=== PATIENT | female | born 1945 | race Caucasian/White ===

== ENCOUNTER → 2023-04-25 | Emergency (ER) | payer OTHER ==
[~2023-04-25] MED LIST: FENTANYL CITR 100 MCG/2 ML ONE; NA CHLORIDE 0.9% 1,000 ML ONE
[2023-04-25 19:13] LABS: Absolute Lymphocytes (CBC) 1.2 K/uL (0.7-4.9); Hematocrit 36.6 % (36.0-45.0); Lymphocytes % 9.7 % (15.3-44.8); MCV 92.4 fL (80-100); MPV 8.9 fL (7.6-11.3); Platelets 280 thou/uL (152-406); RBC Red Blood Cell Count 3.96 M/uL (3.86-4.86)
[2023-04-25 19:31] LABS: Bilirubin Direct 0.2 mg/dL (0-0.2); Bilirubin Indirect, Calculated 0.6 mg/dL (0.2-0.8); Bilirubin Total 0.8 mg/dL (0.2-1.0); Magnesium 2.4 mg/dL (1.6-2.4); Potassium 3.9 mEq/L (3.5-5.1); Protein, Total 7.3 g/dL (6.4-8.2); Troponin High Sensitivity 7.1 pg/mL (<58.9)
--- NOTE | 2023-04-25 19:55 | RAD REPORT ---
EXAM DESCRIPTION: RAD - Chest Single View - 04/25/2023 7:05 pm CLINICAL HISTORY: CHEST PAIN Chest pain. COMPARISON: <Comparisons> FINDINGS: Portable technique limits examination quality. The lungs are grossly clear. The heart is upper limit of normal in size. No displaced fractures.Dual lead pacer device present. Cervical hardware plate. IMPRESSION: No acute intrathoracic process suspected.
--- NOTE | 2023-04-25 21:34 | RAD REPORT ---
EXAM DESCRIPTION: CT - Chest Abd Pelvis Wo Con - 04/25/2023 9:24 pm CLINICAL HISTORY: Chest and abdomen pain. ruq abdomen pain COMPARISON: Chest Single View dated 04/25/2023; Chest Pa And Lat (2 Views) dated 04/16/2023 TECHNIQUE: A limited noncontrast study was performed. All CT scans are performed using dose optimization technique as appropriate and may include automated exposure control or mA/KV adjustment according to patient size. FINDINGS: The lungs are clear.Pacer device present.No pleural or pericardial effusion.No intrathorac ic adenopathy.Small hiatal hernia. Cholecystectomy clips. The liver, spleen, pancreas, adrenal glands and kidneys are within normal limits. Right renal stone w ithout hydronephrosis. No bowel obstruction, free air, free fluid or abscess. Normal appendix. Moderate stool is present thr oughout the colon. Prominent diverticulosis affects the sigmoid colon without diverticulitis. No path ologic lymphadenopathy in the abdomen or pelvis. No worrisome osseous finding. IMPRESSION: Prominent sigmoid diverticulosis coli without diverticulitis.Moderate stool is present t hroughout the colon. Right renal calculi without hydronephrosis.
[2023-04-25 22:55] LABS: Specific Gravity 1.013 (1.005-1.030); Urine Bilirubin NEGATIVE (Negative); Urine Blood Negative (Negative); Urine Clarity Clear (Clear); Urine Color Light-Yellow (Yellow); Urine Glucose NEGATIVE (Negative); Urine Protein NEGATIVE (Negative); Urine Urobilinogen Normal (Normal); Urine pH 6.5 (5.0-7.0)
--- NOTE | 2023-04-25 23:44 | ER ---
Nurse's Notes [facility] Name: Rekha Boyer Age: 77 yrs Sex: Female : 1945 Arrival Date: 04/25/2023 Time: 18:23 Bed 19 Private MD: Diagnosis: Chest pain, unspecified;Upper abdominal pain, unspecified Presentation: 04/25 18:35 Chief complaint: Patient states: Chest pain across chest that she describes as pressure cm10 onset 2 hours ago. Pt also reports shortness of breath onset 8 hours ago. Pt currently on home O2. Coronavirus screen: Vaccine status: Patient reports receiving the 2nd dose of the covid vaccine. Client denies travel out of the [place] in the last 14 days. Ebola Screen: Patient denies travel to an Ebola-affected area in the 21 days before illness onset. No symptoms or risks identified at this time. Initial Sepsis Screen: Does the patient meet any 2 criteria? No. Patient's initial sepsis screen is negative. Does the patient have a suspected source of infection? No. Patient's initial sepsis screen is negative. Risk Assessment: Do you want to hurt yourself or someone else? Patient reports no desire to harm self or others. Onset of symptoms was April 25, 2023. 18:35 Method Of Arrival: Ambulatory cm10 18:35 Acuity: STEFANO 2 cm10 Historical: - Allergies: 18:34 PENICILLINS; cm10 18:34 Sulfa (Sulfonamide Antibiotics); cm10 18:34 Lisinopril; cm10 18:34 Clindamycin; cm10 18:34 tramadol; cm10 18:34 montelukast; cm10 18:34 shellfish derived; cm10 18:34 Iodinated Contrast Media - IV Dye; cm10 - PMHx: 18:34 Congestive heart failure; COPD; cm10 - Immunization history:: Adult Immunizations up to date. - Social history:: Smoking status: Patient denies any tobacco usage or history of. Screenin:00 [facility] ED Fall Risk Assessment (Adult) History of falling in the last 3 months, kc6 including since admission No falls in past 3 months (0 pts) Confusion or Disorientation No (0 pts) Intoxicated or Sedated No (0 pts) Impaired Gait Yes (1 pt) Mobility Assist Device Used Yes (1 pt) Altered Elimination No (0 pt) Score/Fall Risk Level 0 - 2 = Low Risk. Abuse screen: Denies threats or abuse. Denies injuries from another. Nutritional screening: No deficits noted. Tuberculosis screening: No symptoms or risk factors identified. Assessment: 18:45 General: Appears in no apparent distress. comfortable, obese, well groomed, well kc6 developed, Behavior is calm, cooperative, appropriate for age. Pain: Complains of pain in back, chest and abdomen Pain radiates to back and abdomen Pain began 4 hours ago. Neuro: Level of Consciousness is awake, alert, obeys commands, Oriented to person, place, time, situation, Appropriate for age. Cardiovascular: Reports chest pain, Heart tones S1 S2 present Capillary refill < 3 seconds Rhythm is sinus rhythm. Respiratory: Reports shortness of breath at rest on exertion Airway is patent Trachea midline Respiratory effort is even, labored, Respiratory pattern is symmetrical, tachypnea. GI: No signs and/or symptoms were reported involving the gastrointestinal system. : No signs and/or symptoms were reported regarding the genitourinary system. EENT: No signs and/or symptoms were reported regarding the EENT system. Derm: No signs and/or symptoms reported regarding the dermatologic system. Skin is intact, is healthy with good turgor, Skin is dry, Skin is yellow, Skin temperature is warm. Musculoskeletal: No signs and/or symptoms reported regarding the musculoskeletal system. Circulation, motion, and sensation intact. Capillary refill < 3 seconds, Range of motion: intact in all extremities. 20:05 Reassessment: Patient appears in no apparent distress at this time. No changes from jw7 previously documented assessment. Patient and/or family updated on plan of care and expected duration. Pain level reassessed. Patient is alert, oriented x 3, equal unlabored respirations, skin warm/dry/pink. 21:31 Reassessment: Patient appears in no apparent distress at this time. Patient and/or jw7 family updated on plan of care and expected duration. Pain level reassessed. Patient is alert, oriented x 3, equal unlabored respirations, skin warm/dry/pink. Patient states symptoms have improved. 22:25 Reassessment: Patient appears in no apparent distress at this time. No changes from jw7 previously documented assessment. Patient and/or family updated on plan of care and expected duration. Pain level reassessed. Patient is alert, oriented x 3, equal unlabored respirations, skin warm/dry/pink. 23:30 Reassessment: Patient appears in no apparent distress at this time. No changes from jw previously documented assessment. Patient and/or family updated on plan of care and expected duration. Pain level reassessed. Patient is alert, oriented x 3, equal unlabored respirations, skin warm/dry/pink. Vital Signs: 18:35 BP 145 / 78; Pulse 78; Resp 18; Temp 97.7(IR); Pulse Ox 97% on 2 lpm NC; Weight 125.65 cm10 kg; Height 5 ft. 8 in. ; Pain 6/10; 19:45 BP 113 / 54; Pulse 60; Resp 18 S; Pulse Ox 98% on 2 lpm NC; jw7 21:00 BP 116 / 53; Pulse 60; Resp 17 S; Pulse Ox 100% on 2 lpm NC; jw7 22:00 BP 114 / 56; Pulse 60; Resp 16 S; Pulse Ox 100% on 2 lpm NC; jw7 23:08 BP 118 / 59; Pulse 60; Resp 12 S; Pulse Ox 100% on 2 lpm NC; jw7 23:58 BP 122 / 58; Pulse 60; Resp 13 S; Pulse Ox 100% on 2 lpm NC; jw7 18:35 Body Mass Index 42.12 (125.65 kg, 172.72 cm) cm10 18:35 Pain Scale: Adult cm10 ED Course: 18:27 Patient arrived in ED. ts1 18:37 Triage completed. cm10 18:37 Arm band placed on Patient placed in an exam room, on a stretcher, on oxygen. cm10 18:47 Emiliano Saldana MD is Attending Physician. franci 19:00 Patient has correct armband on for positive identification. Placed in gown. Bed in low kc6 position. Call light in reach. Side rails up X2. Adult w/ patient. Client placed on continuous cardiac and pulse oximetry monitoring. NIBP monitoring applied. monitor car operator on. 19:00 Report given to Estela Sapp RN. kc6 19:02 Emiliano Celestin PA is PHCP. cp 19:05 Inserted saline lock: 20 gauge in right antecubital area, using aseptic technique. kc6 Blood collected. Oxygen administration via nasal cannula \T\ 2L/min. 19:07 XRAY Chest (1 view) In Process Unspecified. EDMS 19:23 Estela Portillo, RN is Primary Nurse. jw7 19:43 Influenza Screen (a \T\ B) Sent. jw7 19:43 COVID-19 SARS RT PCR Sent. jw7 21:26 Chest Abd Pelvis Wo Con In Process Unspecified. EDMS 23:59 Provided Education on: discharge instructions. jw7 23:59 No provider procedures requiring assistance completed. IV discontinued, intact, jw7 bleeding controlled, No redness/swelling at site. Pressure dressing applied. Administered Medications: 21:52 Discontinued: ns 0.9% 1000 ml IV at 125 ml/hr continuous cp 19:23 Drug: NS 0.9% IV 1000 ml IV at 125 ml/hr continuous Route: IV; Rate: 125 ml/hr; Site: [facility] right antecubital; 04/26 00:00 Follow up: Response: No adverse reaction; IV Status: Order to discontinue infusion; IV jw7 Intake: 250ml 04/25 19:47 Drug: fentaNYL (PF) IVP 25 mcg IVP once Route: IVP; Site: right antecubital; jw7 23:59 Follow up: Response: No adverse reaction; Marked relief of symptoms jw7 Medication: 23:59 VIS not applicable for this client. jw7 Intake: 04/26 00:00 IV: 250ml; Total: 250ml. jw7 Outcome: 04/25 23:43 Discharge ordered by . cp 23:59 Discharged to home ambulatory, jw7 23:59 Condition: stable 23:59 Discharge instructions given to patient, Instructed on discharge instructions, follow up and referral plans. Demonstrated understanding of instructions, follow-up care, 04/26 00:00 Patient left the ED. jw7 Signatures: Dispatcher [employer] EDKS Emiliano Saldana MD MD cha Page, Corey, PA PA cp Waits, Jodi, RN RN jw7 Yasmin Sumner RN RN [id number] Dana Zaidi PAS PAS ts1 Opal Moore, ELIZABETH RN cm10 Corrections: (The following items were deleted from the chart) 04/25 20:06 19:45 BP 113 / 54; Pulse 60bpm; Resp 18bpm; Spontaneous; Pulse Ox 98% RA; jw7 jw7
--- NOTE | 2023-04-25 23:44 | EDPHYS ---
Physician Documentation [facility] Name: Rekha Boyer Age: 77 yrs Sex: Female : 1945 Arrival Date: 04/25/2023 Time: 18:23 Bed 19 Private MD: ED Physician Emiliano Saldana HPI: 04/25 18:55 This 77 yrs old Female presents to ER via Ambulatory with complaints of Chest Pain, cp Blood Pressure Problem, Abdominal Pain. 18:55 The patient or guardian reports chest pain that is located primarily in the anterior cp chest wall, bilaterally. 18:55 Onset: 2 hour(s) ago. The patient presents with abdominal pain in the upper abdomen. cp Onset: The symptoms/episode began/occurred today. Associated signs and symptoms: Pertinent positives: shortness of breath for 8 hours, Pertinent negatives: constipation, diarrhea, fever. The chest pain is described as a heaviness. Patient reports recent discharge from this hospital last Wednesday after being admitted for pneumonia. Historical: - Allergies: 18:34 PENICILLINS; cm10 18:34 Sulfa (Sulfonamide Antibiotics); cm10 18:34 Lisinopril; cm10 18:34 Clindamycin; cm10 18:34 tramadol; cm10 18:34 montelukast; cm10 18:34 shellfish derived; cm10 18:34 Iodinated Contrast Media - IV Dye; cm10 - PMHx: 18:34 Congestive heart failure; COPD; cm10 - Immunization history:: Adult Immunizations up to date. - Social history:: Smoking status: Patient denies any tobacco usage or history of. ROS: 19:00 Constitutional: Negative for body aches, chills, fever, poor PO intake, cp 19:00 Eyes: Negative for injury, pain, redness, and discharge, cp 19:00 ENT: Negative for drainage from ear(s), ear pain, sore throat, difficulty swallowing, difficulty handling secretions, 19:00 Cardiovascular: Positive for chest pain, Negative for palpitations, 19:00 Respiratory: Positive for shortness of breath, Negative for cough, wheezing, 19:00 Abdomen/GI: Positive for abdominal pain, Negative for vomiting, diarrhea, constipation, 19:00 Back: Negative for pain at rest, pain with movement, 19:00 Neuro: Negative for altered mental status, headache, syncope, weakness, Exam: 18:55 ECG was reviewed by the Attending Physician. cp 19:05 Constitutional: The patient appears in no acute distress, alert, awake, cp non-diaphoretic, non-toxic, well developed, well nourished, obese, 19:05 Head/Face: Normocephalic, atraumatic. cp 19:05 Eyes: Periorbital structures: appear normal, Conjunctiva: normal, no exudate, no injection, Sclera: no appreciated abnormality, Lids and lashes: appear normal, bilaterally, 19:05 ENT: External ear(s): are unremarkable, Nose: is normal, Mouth: Lips: moist, Oral mucosa: pink and intact, moist, Posterior pharynx: is normal, airway is patent, no erythema, no exudate, 19:05 Neck: ROM/movement: is normal, is supple, without pain, no range of motions limitations, 19:05 Chest/axilla: Inspection: normal, 19:05 Cardiovascular: Rate: normal, Rhythm: regular, Edema: ankle edema, that is very mild, JVD: is not appreciated, 19:05 Respiratory: the patient does not display signs of respiratory distress, Respirations: labored breathing, is not present, intercostal retractions, are absent, Breath sounds: are clear throughout, rhonchi, no stridor, no wheezing, 19:05 Abdomen/GI: Inspection: obese Bowel sounds: active, all quadrants, Palpation: soft, in all quadrants, mild abdominal tenderness, in the right upper quadrant, rebound tenderness, is not appreciated, involuntary guarding, is not appreciated, 19:05 Back: CVA tenderness, is absent, 19:05 Neuro: Orientation: to person, place \T\ time. Mentation: is normal, Motor: moves all fours, strength is normal, Sensation: is normal, Vital Signs: 18:35 BP 145 / 78; Pulse 78; Resp 18; Temp 97.7(IR); Pulse Ox 97% on 2 lpm NC; Weight 125.65 cm10 kg; Height 5 ft. 8 in. ; Pain 6/10; 19:45 BP 113 / 54; Pulse 60; Resp 18 S; Pulse Ox 98% on 2 lpm NC; jw7 21:00 BP 116 / 53; Pulse 60; Resp 17 S; Pulse Ox 100% on 2 lpm NC; jw7 22:00 BP 114 / 56; Pulse 60; Resp 16 S; Pulse Ox 100% on 2 lpm NC; jw7 23:08 BP 118 / 59; Pulse 60; Resp 12 S; Pulse Ox 100% on 2 lpm NC; jw7 23:58 BP 122 / 58; Pulse 60; Resp 13 S; Pulse Ox 100% on 2 lpm NC; jw7 18:35 Body Mass Index 42.12 (125.65 kg, 172.72 cm) cm10 18:35 Pain Scale: Adult cm10 MDM: 18:45 Patient medically screened. franci 19:01 Patient medically screened. franci 23:42 Data reviewed: vital signs, nurses notes, lab test result(s), EKG, radiologic studies, cp CT scan, plain films. 23:42 Differential diagnosis: abnormal EKG, acute myocardial infarction, pancreatitis, cp pneumonia, pneumothorax. Consideration of Admission/Observation Escalation of care including admission/observation considered. I considered the following discharge prescriptions or medication management in the emergency department Medications were administered in the Emergency Department. See MAR. Independent interpretation of the following test(s) in the Emergency Department EKG: See my EKG interpretation above. Care significantly affected by the following chronic conditions: Congestive Heart Failure, Chronic Obstructive Pulmonary Disease, Obesity. Counseling: I had a detailed discussion with the patient and/or guardian regarding the historical points, exam findings, and any diagnostic results supporting the discharge/admit diagnosis, lab results, radiology results, the need for outpatient follow up, a family practitioner, to return to the emergency department if symptoms worsen or persist or if there are any questions or concerns that arise at home. Response to treatment: the patient's symptoms have markedly improved after treatment, and as a result, I will discharge patient. Special discussion: Based on the patient's history, exam, and Dx evaluation, there is no indication for emergent intervention or inpatient Tx. It is understood by the patient/guardian that if the Sx's persist or worsen they need to return immediately for re-evaluation. Based on the patient's Hx, exam, and Dx evaluation, there is no indication for emergent surgery or inpatient Tx. It is understood by the patient/guardian that if the Sx's persist or worsen they need to return immediately for re-evaluation. 04/25 18:47 Order name: Basic Metabolic Panel; Complete Time: 20:00 [facility] 04/25 21:51 Interpretation: Normal except: CL 95; CO2 35; BUN 40; CRE 2.12; GFR 24; CA 8.4. 04/25 18:47 Order name: CBC with Diff; Complete Time: 19:29 [facility] 04/25 23:44 Interpretation: Normal except: WBC 12.10; HGB 11.8; RDW 16.5; SHERYL% 83.9; LYM% 9.7; NEUT cp A 10.1. 04/25 18:47 Order name: LFT's; Complete Time: 20:00 [facility] 04/25 23:45 Interpretation: Normal except: AST 12; ALK 118; ALB 3.0; GLOB 4.3; A/G 0.7. 04/25 18:47 Order name: Magnesium; Complete Time: 20:00 [facility] 04/25 18:47 Order name: NT PRO-BNP; Complete Time: 20:00 [facility] 04/25 18:47 Order name: Troponin HS; Complete Time: 20:00 [facility] 04/25 18:47 Order name: Lipase; Complete Time: 20:00 [facility] 04/25 18:47 Order name: Urinalysis w/ reflexes; Complete Time: 23:02 [facility] 04/25 19:30 Order name: COVID-19 SARS RT PCR; Complete Time: 21:50 04/25 19:30 Order name: Influenza Screen (a \T\ B); Complete Time: 21:50 04/25 21:53 Order name: Troponin High Sensitivity; Complete Time: 23:38 04/25 23:45 Interpretation: Reviewed. 04/25 18:47 Order name: XRAY Chest (1 view); Complete Time: 20:00 [facility] 04/25 20:41 Order name: Chest Abd Pelvis Wo Con; Complete Time: 21:50 EDMS 04/25 18:47 Order name: EKG; Complete Time: 18:48 [facility] 04/25 18:47 Order name: Cardiac monitoring; Complete Time: 19:04 [facility] 04/25 18:47 Order name: EKG - Nurse/Tech; Complete Time: 19:04 [facility] 04/25 18:47 Order name: IV Saline Lock; Complete Time: 19:04 [facility] 04/25 18:47 Order name: Labs collected and sent; Complete Time: 19:04 [facility] 04/25 18:47 Order name: O2 Per Protocol; Complete Time: 19:04 [facility] 04/25 18:47 Order name: O2 Sat Monitoring; Complete Time: : [facility] EC:55 Rate is 77 beats/min. Rhythm is regular, Paced. QRS interval is prolonged at 154 msec. cp QT interval is prolonged. Interpreted by me. Reviewed by me. Administered Medications: 21:52 Discontinued: ns 0.9% 1000 ml IV at 125 ml/hr continuous cp 19:23 Drug: NS 0.9% IV 1000 ml IV at 125 ml/hr continuous Route: IV; Rate: 125 ml/hr; Site: [facility] right antecubital; 04/26 00:00 Follow up: Response: No adverse reaction; IV Status: Order to discontinue infusion; IV jw7 Intake: 250ml 04/25 19:47 Drug: fentaNYL (PF) IVP 25 mcg IVP once Route: IVP; Site: right antecubital; jw7 23:59 Follow up: Response: No adverse reaction; Marked relief of symptoms jw7 Disposition Summary: 04/25/23 23:43 Discharge Ordered Notes: Location: Home cp Problem: new cp Symptoms: have improved cp Condition: Stable cp Diagnosis - Chest pain, unspecified cp - Upper abdominal pain, unspecified cp Followup: cp - With: Private Physician - When: 2 - 3 days - Reason: Recheck today's complaints Discharge Instructions: - Discharge Summary Sheet cp - Abdominal Pain, Adult cp - Nonspecific Chest Pain, Adult cp - Aspirin and Your Heart cp Forms: - Medication Reconciliation Form cp - Thank You Letter cp - Antibiotic Education cp - Prescription Opioid Use cp - Patient Portal Instructions cp - Leadership Thank You Letter cp Signatures: Dispatcher [employer] EDMS Emiliano Saldana MD MD cha Page, Corey, PA PA cp Estela Portillo RN RN jw7 Opal Moore RN RN cm10 Corrections: (The following items were deleted from the chart) 20:41 20:32 Abdomen Pelvis Wo Con+CT.RAD.BRZ ordered. EDMS EDMS 20:45 20:33 Thorax Wo Con+CT.RAD.BRZ ordered. EDMS EDMS
[2023-04-26 02:22] VITALS: TEMP 97.7
[2023-04-26 02:39] VITALS: BP 122/58; O2SAT 100
--- NOTE | 2023-04-26 16:57 | EKG ---
Test Date: 2023-04-25 Test Time: 18:47:50 Wilton Weaver: CRISTIAN MEASUREMENT RESULTS: Intervals: Rate: 77 DE: 220 QRSD: 154 QT: 446 QTc: 504 [place]: P: 98 DE: 220 QRS: 220 T: 52 INTERPRETIVE STATEMENTS: Suspect arm lead reversal, interpretation assumes no reversal Atrial-paced rhythm with prolonged AV conduction Right bundle branch block Abnormal ECG Compared to ECG 04/16/2023 18:10:00 T-wave abnormality no longer present Possible ischemia no longer present Electronically Signed On 04-26-23 16:55:27 [employer] MECHANIC by Armando Holt
== END ==
LOC: ER 18:23
DX: R07.89 Other chest pain (principal); R10.10 Upper abdominal pain, unspecified; Z11.52 Encounter for screening for COVID-19; J44.9 Chronic obstructive pulmonary disease, unspecified; I50.9 Heart failure, unspecified; Z88.0 Allergy status to penicillin; Z88.2 Allergy status to sulfonamides; Z88.3 Allergy status to other anti-infective agents; Z88.5 Allergy status to narcotic agent; Z88.8 Allergy status to other drugs, medicaments and biological substances; Z91.013 Allergy to seafood; Z91.041 Radiographic dye allergy status
CPT/HCPCS: 96361; 93005; 85025; 80048; 36415; 83735; 80076; 81003; 84484 ×2; 83690; 83880; 87635; 87804 ×2; 71250; 74176; 71045; 96374; 99285; J3010; J7030

== ENCOUNTER 2023-09-28 18:35 | Inpatient (IN) | payer OTHER ==
--- NOTE | 2023-09-28 20:31 | ER ---
Nurse's Notes [facility] Name: Rekha Boyer Age: 77 yrs Sex: Female : 1945 Arrival Date: 09/28/2023 Time: 18:35 Bed 15 Private MD: Diagnosis: UTI/ Urinary tract infection, site not specified-ESBL Presentation: 09/27 18:56 Chief complaint: Patient states: ESBL urine, sent in by Dr. Wilson. Coronavirus screen: ll1 Client denies travel out of the [place] in the last 14 days. At this time, the client does not indicate any symptoms associated with coronavirus-19. Ebola Screen: Patient denies travel to an Ebola-affected area in the 21 days before illness onset. Initial Sepsis Screen: Does the patient meet any 2 criteria? No. Patient's initial sepsis screen is negative. Does the patient have a suspected source of infection? No. Patient's initial sepsis screen is negative. Risk Assessment: Do you want to hurt yourself or someone else? Patient reports no desire to harm self or others. Onset of symptoms was September 28, 2023. 18:56 Method Of Arrival: Wheelchair ll1 18:56 Acuity: STEFANO 3 ll1 Triage Assessment: 18:56 General: Appears uncomfortable, Behavior is calm, cooperative, appropriate for age. iw Pain: Denies pain. : Reports ESBL urine. Historical: - Allergies: 18:59 Clindamycin; ll1 18:59 Iodinated Contrast Media - IV Dye; ll1 18:59 Lisinopril; ll1 18:59 montelukast; ll1 18:59 PENICILLINS; ll1 18:59 shellfish derived; ll1 18:59 Sulfa (Sulfonamide Antibiotics); ll1 18:59 tramadol; ll1 18:59 Tape; ll1 - PMHx: 18:59 Congestive heart failure; COPD; Asthma; ll1 - Immunization history:: Adult Immunizations up to date. - Infectious Disease History:: Denies. - Social history:: Smoking status: Patient/guardian denies using tobacco. Screenin:19 [facility] ED Fall Risk Assessment (Adult) History of falling in the last 3 months, pc2 including since admission No falls in past 3 months (0 pts) Confusion or Disorientation No (0 pts) Intoxicated or Sedated No (0 pts) Impaired Gait Yes (1 pt) Mobility Assist Device Used Yes (1 pt) Altered Elimination No (0 pt) Score/Fall Risk Level 0 - 2 = Low Risk Oriented to surroundings, Maintained a safe environment, Hourly rounding (assess needs \\T\\ fall precautionary measures) done. Abuse screen: Denies threats or abuse. Denies injuries from another. Nutritional screening: No deficits noted. Tuberculosis screening: No symptoms or risk factors identified. Assessment: 19:49 General: Appears in no apparent distress. comfortable, obese, well groomed, Behavior is pc2 calm, cooperative, appropriate for age. Neuro: Level of Consciousness is awake, alert, obeys commands, Oriented to person, place, time, situation, Appropriate for age. Cardiovascular: Capillary refill < 3 seconds Patient's skin is warm and dry. Pulses are all present. Respiratory: Airway is patent Respiratory effort is even, unlabored, Respiratory pattern is regular, symmetrical. GI: Abdomen is obese. : Reports burning with urination, since few days "discomfort, feels like pins sticking me after I finishing urinating.". EENT: No signs and/or symptoms were reported regarding the EENT system. Musculoskeletal: No signs and/or symptoms reported regarding the musculoskeletal system. Reports Healing wound on right ankle from surgery in April. Unable to walk far distance without walker or wheelchair. Vital Signs: 18:56 Pulse 72; Resp 18; Temp 98; Pulse Ox 100% on 2 lpm NC; Weight 119.75 kg; Height 5 ft. 8 ll1 in. ; Pain 0/10; 19:39 BP 151 / 60; Pulse 72; Resp 18; Pulse Ox 100% on R/A; pc2 22:00 BP 145 / 65; Pulse 65; Resp 18; Pulse Ox 100% on R/A; pc2 18:56 Body Mass Index 40.14 (119.75 kg, 172.72 cm) ll1 18:56 Pain Scale: Adult ll1 ED Course: 18:36 Patient arrived in ED. rg4 18:[address] MD is Attending Physician. ec2 18:59 Triage completed. ll1 18:59 [facility] Math[facility]C [facility] kb 19:00 Arm band placed on. ll1 19:38 Anika cooper, RN is Primary Nurse. pc2 19:40 Client placed on continuous cardiac and pulse oximetry monitoring. NIBP monitoring pc2 applied. Pulse ox on. NIBP on. 20:21 Provided Education on: POC and timeframe, reason for admission. pc2 20:22 Patient has correct armband on for positive identification. Placed in gown. Bed in low pc2 position. Call light in reach. Side rails up X2. 20:29 Junito Almanza is Hospitalizing Provider. kb 20:30 Initial lab(s) drawn, by me, sent to lab. First set of blood cultures drawn by me. vk 20:33 Blood Culture Adult (2) Sent. vk 20:33 CBC with Diff Sent. vk 20:33 CMP Sent. vk 20:33 Lactate w/ 2H reflex if indic. Sent. vk 20:33 Protime (+inr) Sent. vk 20:33 Ptt, Activated Sent. vk 20:33 Inserted saline lock: 20 gauge in right forearm, using aseptic technique. vk 20:40 No provider procedures requiring assistance completed. pc2 Administered Medications: 21:55 Drug: Meropenem IV 1 grams IV at calculated rate once; (mix in NS 100 mL) Route: IV; pc2 Rate: calculated rate; Site: right forearm; 22:52 Follow up: Response: No adverse reaction; IV Status: Completed infusion; IV Intake: pc2 100ml Medication: 20:22 VIS not applicable for this client. pc2 Intake: 22:52 IV: 100ml; Total: 100ml. pc2 Outcome: 20:30 Decision to Hospitalize by Provider. kb 20:35 Admitted to ER Hold. Please see [facility] for further documentation. pc2 20:35 Condition: stable pc2 20:35 Instructed on the need for admit, Demonstrated understanding of instructions, 09/28 11:00 Patient left the ED. bp Signatures: Candice Mathias, OPAL MINER-C OPAL MINER-CkNaila Sequeira, RN Katharine Medeiros rg4 Jorge Sabillon RN RN Sophie Alegre RN RN ll1 Mason Lane MD MD ec2 Yoli King vk Anika cooper, RN RN pc2
--- NOTE | 2023-09-28 20:31 | EDPHYS ---
Physician Documentation [facility] Name: Rekha Boyer Age: 77 yrs Sex: Female : 1945 Arrival Date: 09/28/2023 Time: 18:35 Bed 15 Private MD: ED Physician Mason Lane HPI: 09/27 21:28 This 77 yrs old Female presents to ER via Wheelchair with complaints of Abnormal Lab kb Results. 21:28 Pt is a 77 year old female who presents for admission for IV antibiotics. States she kb was seen by Dr Wilson on Wednesday for dysuria, had labs and urinalysis done. Was called today and told she needed IV antibiotics and admission. Historical: - Allergies: 18:59 Clindamycin; ll1 18:59 Iodinated Contrast Media - IV Dye; ll1 18:59 Lisinopril; ll1 18:59 montelukast; ll1 18:59 PENICILLINS; ll1 18:59 shellfish derived; ll1 18:59 Sulfa (Sulfonamide Antibiotics); ll1 18:59 tramadol; ll1 18:59 Tape; ll1 - PMHx: 18:59 Congestive heart failure; COPD; Asthma; ll1 - Immunization history:: Adult Immunizations up to date. - Infectious Disease History:: Denies. - Social history:: Smoking status: Patient/guardian denies using tobacco. ROS: 21:27 Constitutional: As per HPI kb Exam: 20:32 Constitutional: This is a well developed, well nourished patient who is awake, alert, kb and in no acute distress. Head/Face: Normocephalic, atraumatic. ENT: Moist Mucous membranes Cardiovascular: Regular rate Respiratory: Respirations even and unlabored. No increased work of breathing. Talking in full sentences Skin: Warm, dry with normal turgor. Normal color. MS/ Extremity: Pulses equal, no cyanosis. Neurovascular intact. Full, normal range of motion. Neuro: Awake and alert, GCS 15, oriented to person, place, time, and situation. Moves all extremities 20:32 ECG was reviewed by the Attending Physician. Vital Signs: 18:56 Pulse 72; Resp 18; Temp 98; Pulse Ox 100% on 2 lpm NC; Weight 119.75 kg; Height 5 ft. 8 ll1 in. ; Pain 0/10; 19:39 BP 151 / 60; Pulse 72; Resp 18; Pulse Ox 100% on R/A; pc2 22:00 BP 145 / 65; Pulse 65; Resp 18; Pulse Ox 100% on R/A; pc2 18:56 Body Mass Index 40.14 (119.75 kg, 172.72 cm) ll1 18:56 Pain Scale: Adult ll1 MDM: 19:00 Patient medically screened. kb 21:27 Differential diagnosis: UTI, ESBL. Data reviewed: vital signs, nurses notes. kb Consideration of Admission/Observation Patient was admitted/placed on observation. Escalation of care including admission/observation considered. Management of patient was discussed with the following: Hospitalist: Dr Almanza accepts pt for admission. External Records Reviewed: Outpatient labs: labs from PCP reviewed. urine positive for ESBL. Counseling: I had a detailed discussion with the patient and/or guardian regarding the historical points, exam findings, and any diagnostic results supporting the discharge/admit diagnosis, lab results, the need for further work-up and treatment in the hospital. 09/27 19:02 Order name: Blood Culture Adult (2) kb 09/27 19:02 Order name: CBC with Diff; Complete Time: 21:04 kb 09/27 19:02 Order name: CMP; Complete Time: 21:21 kb 09/27 19:02 Order name: Lactate w/ 2H reflex if indic.; Complete Time: 21:21 kb 09/27 19:02 Order name: Protime (+inr); Complete Time: 21:04 kb 09/27 19:02 Order name: Ptt, Activated; Complete Time: 21:04 kb 09/27 19:02 Order name: Urinalysis w/ reflexes kb 09/28 02:55 Order name: CBC with Automated Diff EDMS 09/28 03:02 Order name: Basic Metabolic Panel EDMS 09/28 03:02 Order name: Phosphorus EDMS 09/28 03:02 Order name: Magnesium EDMS 09/27 19:02 Order name: Cardiac monitoring; Complete Time: 20:17 kb 09/27 19:02 Order name: EKG - Nurse/Tech; Complete Time: 20:17 kb 09/27 19:02 Order name: IV Saline Lock - Large Bore; Complete Time: 20:17 kb 09/27 19:02 Order name: Labs collected and sent; Complete Time: 20:33 kb 09/27 19:02 Order name: O2 Per Protocol; Complete Time: 19:52 kb 09/27 19:02 Order name: O2 Sat Monitoring; Complete Time: 19:52 kb 09/27 19: Order name: Vital Signs; Complete Time: 19:52 kb EC:32 Rate is 64 beats/min. Rhythm is regular. QRS [place] is Normal. DE interval is normal at kb 146 msec. QRS interval is normal at 150 msec. QT interval is prolonged at 526 msec. Administered Medications: 21:55 Drug: Meropenem IV 1 grams IV at calculated rate once; (mix in NS 100 mL) Route: IV; pc2 Rate: calculated rate; Site: right forearm; 22:52 Follow up: Response: No adverse reaction; IV Status: Completed infusion; IV Intake: pc2 100ml Disposition Summary: 09/28/23 20:30 Hospitalization Ordered Notes: Hospitalization Status: Inpatient Admission kb Provider: Junito Almanza Condition: Stable kb Problem: new kb Symptoms: are unchanged kb Bed/Room Type: Standard Location: Telemetry/MedSurg (Inpatient)(09/29/23 10:14) Room Assignment: 404(09/29/23 10:14) bd Diagnosis - UTI/ Urinary tract infection, site not specified - ESBL kb Forms: - Medication Reconciliation Form kb - SBAR form kb - Leadership Thank You Letter kb Addendum: 10/01/2023 14:38 I was immediately available for consultation during this patient's visit. I did not e c2 personally see the patient or discuss the patient with the TAM. . Signatures: Dispatcher [employer] EDCandice Castillo FNP-C PHYSICAL THERAPY ASSISTANT-Corinna Guardado Lynsay RN RN ll1 Cydney Menjivar RN RN vc1 Mason Lane MD MD ec2 Anika cooper, RN RN pc2 Corrections: (The following items were deleted from the chart) 09/27 19:02 19:02 BLOOD CULTURE*+BA.LAB.BRZ ordered. EDVT EDMS 19:02 19:02 CBC+H.LAB.BRZ ordered. EDVT EDMS 19:02 19:02 COMPREHENSIVE METABOLIC PANEL+C.LAB.BRZ ordered. EDVT EDMS 19:02 19:02 LACTATE+C.LAB.BRZ ordered. EDMS EDMS 19: 19:02 PROTIME (+INR)+COAG.LAB.BRZ ordered. EDMS EDMS 19:02 19:02 PTT, ACTIVATED+COAG.LAB.BRZ ordered. EDMS EDMS 19:02 19:02 Urinalysis+U.LAB.BRZ ordered. EDMS EDMS 22:43 20:30 Telemetry/MedSurg (Inpatient) kb 1 22:43 20:30 kb 1 09/28 10:14 09/27 22:43 [facility] ER HOLD vc1 09/28 10:09/27 22:43 ERHOLD- vc1 bd
[2023-09-28 20:59] LABS: Absolute Basophils 0.1 K/uL (0-0.5); Absolute Eosinophils 0.2 K/uL (0-0.5); Absolute Lymphocytes (CBC) 1.3 K/uL (0.7-4.9); Absolute Monocytes 0.7 K/uL (0.1-1.3); Absolute Neutrophil 4.8 K/uL (1.8-8.0); Basophils % 0.9 % (0-1.3); Eosinophils % 2.4 % (0-4.4); Hematocrit 27.4 % (36.0-45.0); Hemoglobin 8.7 g/dL (12.0-15.0); Lymphocytes % 18.2 % (15.3-44.8); MCH 25.3 pg (27.0-35.0); MCHC 31.8 g/dL (32.0-36.0); MCV 79.8 fL (80-100); MPV 8.5 fL (7.6-11.3); Monocytes % 9.8 % (3.3-12.3); Neutrophils % 68.7 % (41.7-73.7); Nucleated Red Blood Cells % 0.3 % (0-0); Platelets 306 thou/uL (152-406); RBC Red Blood Cell Count 3.43 M/uL (3.86-4.86); Red Cell Distribution Width 17.3 % (12.1-15.2)
[2023-09-28 21:04] LABS: PT Prothrombin Time 15.7 SECONDS (9.5-12.5); Protime INR 1.44
[2023-09-28 21:15] LABS: Albumin/Globulin Ratio 0.6 (1.1-1.8); Anion Gap 7.7 mEq/L (5.0-15.0); Bilirubin Total 0.6 mg/dL (0.2-1.0); Globulin 4.9 g/dL (2.3-3.5); Potassium 3.7 mEq/L (3.5-5.1); Protein, Total 7.9 g/dL (6.4-8.2)
[2023-09-28] MEDS ORDERED: ONDANSETRON 4 MG/2 ML VIAL IV PRN (21:47)
[2023-09-28] MEDS ORDERED: Meropenem 1000 MG/VIAL IV ONE (21:55)
[2023-09-28] MEDS ORDERED: NA CHLORIDE 0.9% 100 ML ONE (21:55)
--- NOTE | 2023-09-28 22:01 | P.HP ---
Certification for Inpatient Patient admitted to: Inpatient With expected LOS: >2 Midnights Practitioner: I am a practitioner with admitting privileges, knowledge of patient current condition, hospital course, and medical plan of care. Services: Services provided to patient in accordance with Admission requirements found in Title 42 Section 412.3 of the Code of Federal Regulations Patient History Date of Service: 09/28/23 Reason for admission: Urinary tract infection History of Present Illness: 77-year-old male with a history of gout, COPD and hypertension was referred to the emergency department to be admitted for presence of ESBL E. coli in her urine. Patient reports urinary symptoms with suprapubic pain, dysuria and increased urinary frequency of about 3 days duration. She went to see her PCP Dr. Wilson, urine culture was done which grew ESBL E. coli. Patient denies any fever or nausea or inflammation or loss of appetite. She was assessed in the emergency department and patient noted to have anemia, UA is pending. Patient is hospitalized for further management. Allergies clindamycin Allergy (Verified 04/16/23 23:57) Nausea/Vomiting Iodinated Contrast Media Allergy (Verified 04/16/23 23:57) Hives lisinopril Allergy (Verified 04/16/23 23:59) muscle aches montelukast [From Singulair] Allergy (Verified 04/16/23 23:57) Hives Penicillins Allergy (Verified 04/16/23 23:57) Hives shellfish derived Allergy (Verified 04/16/23 23:57) Hives Sulfa (Sulfonamide Antibiotics) Allergy (Verified 04/16/23 23:57) Nausea/Vomiting tramadol Allergy (Verified 04/16/23 23:59) dizziness,GI upset Home Medications: Allopurinol 1 tab PO DAILY 04/17/23 Amiodarone HCl [Cordarone*] 1 tab PO DAILY 04/17/23 Apixaban [Eliquis] 5 mg PO BID 04/17/23 Benzonatate [Tessalon Perle*] 100 mg PO TID 04/17/23 Bupropion *Xl* [Wellbutrin XL*] 150 mg PO DAILY 04/17/23 Citalopram Hydrobromide [Citalopram HBr] 40 mg PO DAILY 04/17/23 Famotidine 20 mg PO SEECOM 04/17/23 Fluticasone/Umeclidin/Vilanter [Trelegy Ellipta 100-62.5-25] 1 puff IH DAILY 04/17/23 Iron 27 Or 1 tab PO DAILY 04/17/23 Levothyroxine Sodium 75 mcg PO DAILY 04/17/23 Metoprolol Succinate 100 mg PO DAILY 04/17/23 Pregabalin 100 mg PO BID 04/17/23 Torsemide [Demadex*] 60 mg PO BID 04/17/23 Citalopram [Celexa*] 40 mg PO DAILY 04/18/23 Levofloxacin [Levaquin] 500 mg PO DAILY #7 tab 04/18/23 Methylprednisolone [Medrol dosepack] 4 mg PO DIRECTED #1 patience 04/18/23 Pharmacy Consult 1 ea XX DAILYPRN PRN ea 04/18/23 - Past Medical/Surgical History Diabetic: No -: Chronic atrial fibrillation -: Congestive heart failure -: COPD -: Chronic respiratory failure -: GERD -: Gallbladder surgery - Family History Father -: Cancer - Social History Alcohol use: No CD- Drugs: No Caffeine use: Yes Review of Systems Other: Except as documented, all other systems reviewed and negative. Physical Examination - Physical Exam General: Alert, In no apparent distress, Oriented x3 HEENT: Mucous membr. moist/pink Neck: Supple, JVD not distended Respiratory: Clear to auscultation bilaterally, Normal air movement Cardiovascular: No edema, Normal S1 S2, Irregular heart rate/rhythm Capillary refill: <2 Seconds Gastrointestinal: Normal bowel sounds, Soft and benign, Non-distended, No tenderness Musculoskeletal: No swelling, No tenderness Integumentary: No cyanosis, Other (Healed surgical scar-medial aspect of right ankle) Neurological: Normal speech, Normal strength at 5/5 x4 extr, Cranial nerves 3-12 intact Lymphatics: No axilla or inguinal lymphadenopathy - Studies Laboratory Data (last 24 hrs) 09/28/23 09/28/23 09/28/23 20:26 20:26 20:26 WBC 7.10 Hgb 8.7 L Hct 27.4 L Plt Count 306 PT 15.7 H INR 1.44 APTT 38.0 H Sodium 138 Potassium 3.7 BUN 25 H Creatinine 1.83 H Glucose 133 H Total Bilirubin 0.6 AST 15 ALT 18 Alkaline Phosphatase 152 H Assessment and Plan - Problems (Diagnosis) (1) Urinary tract infection due to extended-spectrum beta lactamase (ESBL) producing Escherichia coli Current Visit: Yes Status: Acute (2) COPD (chronic obstructive pulmonary disease) Current Visit: Yes Status: Acute (3) Chronic gout Current Visit: Yes Status: Acute (4) Chronic anticoagulation Current Visit: No Status: Acute (5) Chronic atrial fibrillation Current Visit: No Status: Acute - Plan ESBL E. coli UTI Admit to the medical floor Patient reports remote allergy to penicillin with hives. Trial of IV meropenem, Anticipating 5 to 7 days of IV meropenem Consider midline for outpatient IV antibiotics. Chronic atrial fibrillation Chronic anticoagulation Continue home dose amiodarone Continue Eliquis Chronic Gout Continue home dose allopurinol. COPD Chronic respiratory failure with hypoxia Not in exacerbation Bronchodilators, nebs as needed Patient uses 2 L of oxygen by nasal cannula at baseline. DVT prophylaxis: Eliquis. CODE STATUS: Full code. - Advance Directives Does patient have a Living Will: No Does patient have a Durable POA for Healthcare: No
[2023-09-28 23:20] VITALS: BMI 40.1
[2023-09-29 01:59] LABS: Specific Gravity 1.015 (1.005-1.030); Sqamous Epithelial <5 /HPF (None Seen); Urine Bacteria <20 /HPF (<20); Urine Bilirubin NEGATIVE (Negative); Urine Blood Negative (Negative); Urine Clarity Turbid (Clear); Urine Color Light-Yellow (Yellow); Urine Culture Reflex Order REFLEXED; Urine Glucose NEGATIVE (Negative); Urine Ketones NEGATIVE (Negative); Urine Microscopic Reflex YN ORDER UMIC; Urine Mucus Slight /HPF (None Seen); Urine Nitrite 1+ (Negative); Urine Protein NEGATIVE (Negative); Urine RBC None Seen /HPF (None Seen); Urine Urobilinogen Normal (Normal); Urine pH 6.5 (5.0-7.0)
[2023-09-29 02:48] LABS: Absolute Basophils 0.1 K/uL (0-0.5); Absolute Eosinophils 0.2 K/uL (0-0.5); Absolute Lymphocytes (CBC) 1.7 K/uL (0.7-4.9); Absolute Monocytes 0.8 K/uL (0.1-1.3); Absolute Neutrophil 3.9 K/uL (1.8-8.0); Eosinophils % 3.2 % (0-4.4); Hematocrit 26.5 % (36.0-45.0); Hemoglobin 8.3 g/dL (12.0-15.0); Lymphocytes % 25.9 % (15.3-44.8); MCH 24.9 pg (27.0-35.0); MCHC 31.4 g/dL (32.0-36.0); MCV 79.4 fL (80-100); MPV 9.5 fL (7.6-11.3); Monocytes % 11.9 % (3.3-12.3); Nucleated Red Blood Cells % 0.2 % (0-0); Platelets 223 thou/uL (152-406); RBC Red Blood Cell Count 3.34 M/uL (3.86-4.86); Red Cell Distribution Width 17.3 % (12.1-15.2)
[2023-09-29 03:02] LABS: Anion Gap 8.1 mEq/L (5.0-15.0); Magnesium 2.1 mg/dL (1.6-2.4); Phosphorus 4.1 mg/dL (2.5-4.9); Potassium 4.1 mEq/L (3.5-5.1)
[2023-09-29] MEDS: ENOXAPARIN 30 MG/0.3 ML SQ SCH (09:00)
[2023-09-29] MEDS: Meropenem 1,000 MG in NA CHLORIDE 0.9% 100 ML IV SCH (09:00)
[2023-09-29] MEDS ORDERED: Meropenem 1000 MG/VIAL IV ONE (09:10)
[2023-09-29] MEDS ORDERED: ENOXAPARIN 30 MG/0.3 ML SQ ONE (09:11)
[2023-09-29] MEDS ORDERED: NA CHLORIDE 0.9% 100 ML ONE (09:11)
--- NOTE | 2023-09-29 12:50 | P.PN ---
Subjective Date of Service: 09/29/23 Chief Complaint: Urinary tract infection Pt is resting comfortably in bed. He denies any chest pain, fever or SOB. She is getting iv merrem for ESBL Ecoli. No other complaints. Review of Systems General: Unremarkable Eyes: Unremarkable ENT: Unremarkable Respiratory: Unremarkable Cardiovascular: Unremarkable Gastrointestinal: Unremarkable Genitourinary: Unremarkable Musculoskeletal: Unremarkable Integumentary: Unremarkable Neurological: Unremarkable Lymphatics: Unremarkable Physical Examination - Vital Signs Temperature: 97.5 F Blood Pressure: 127/59 Pulse: 67 Respirations: 17 Pulse Ox (%): 95 - Physical Exam General: Alert, In no apparent distress, Oriented x3 HEENT: Atraumatic, Normocephalic, PERRLA Neck: Supple, 2+ carotid pulse no bruit, JVD not distended Respiratory: Clear to auscultation bilaterally, Normal air movement Cardiovascular: No edema, Normal pulses, Regular rate/rhythm, Normal S1 S2 Capillary refill: <2 Seconds Gastrointestinal: Normal bowel sounds, Soft and benign, Non-distended Musculoskeletal: No clubbing, No swelling Integumentary: No rashes, No breakdown, No significant lesion Neurological: Normal gait, Normal speech, Normal strength at 5/5 x4 extr Lymphatics: No axilla or inguinal lymphadenopathy - Studies Laboratory Data (last 24 hrs) 09/28/23 09/28/23 09/28/23 20:26 20:26 20:26 WBC 7.10 Hgb 8.7 L Hct 27.4 L Plt Count 306 PT 15.7 H INR 1.44 APTT 38.0 H Sodium 138 Potassium 3.7 BUN 25 H Creatinine 1.83 H Glucose 133 H Total Bilirubin 0.6 AST 15 ALT 18 Alkaline Phosphatase 152 H Assessment And Plan - Plan ESBL E. coli UTI: Will continue merrem for 7 days. F/u urine cx. Chronic atrial fibrillation: will continue telemetry, amiodarone and Eliquis. Chronic Gout: continue home dose allopurinol. COPD / Chronic respiratory failure with hypoxia: Stable. Not in exacerbation. Will continue prn duoneb and 2L oxygen. DVT ppx: Eliquis. Code: Full code Dispo: Pending hospital course.
[2023-09-30 07:06] LABS: Absolute Eosinophils 0.2 K/uL (0-0.5); Absolute Lymphocytes (CBC) 1.6 K/uL (0.7-4.9); Absolute Monocytes 0.8 K/uL (0.1-1.3); Absolute Neutrophil 3.2 K/uL (1.8-8.0); Basophils % 0.3 % (0-1.3); Eosinophils % 3.3 % (0-4.4); Hematocrit 24.7 % (36.0-45.0); Hemoglobin 7.7 g/dL (12.0-15.0); Lymphocytes % 27.7 % (15.3-44.8); MCH 24.9 pg (27.0-35.0); MCHC 31.3 g/dL (32.0-36.0); MCV 79.5 fL (80-100); MPV 8.2 fL (7.6-11.3); Monocytes % 13.8 % (3.3-12.3); Neutrophils % 54.9 % (41.7-73.7); Nucleated Red Blood Cells % 0.3 % (0-0); Platelets 265 thou/uL (152-406); RBC Red Blood Cell Count 3.11 M/uL (3.86-4.86); Red Cell Distribution Width 17.1 % (12.1-15.2)
[2023-09-30 07:24] LABS: AST/SGOT 14 U/L (15-37); Albumin 2.4 g/dL (3.4-5.0); Albumin/Globulin Ratio 0.6 (1.1-1.8); Alkaline Phosphatase 107 U/L (45-117); Anion Gap 5.8 mEq/L (5.0-15.0); BUN Blood Urea Nitrogen 19 mg/dL (7-18); Bicarbonate 36 mEq/L (21-32); Bilirubin Total 0.8 mg/dL (0.2-1.0); Globulin 4.3 g/dL (2.3-3.5); Glomerular Filtration Rate 36 ml/min (=/>90); Glucose Level 91 mg/dL (74-106); Potassium 3.8 mEq/L (3.5-5.1); Protein, Total 6.7 g/dL (6.4-8.2); Sodium Level 139 mEq/L (136-145)
[2023-09-30 07:25] LABS: ALT/SGPT < 14 U/L (13-56)
--- NOTE | 2023-09-30 12:42 | P.PN ---
Subjective Date of Service: 09/30/23 Chief Complaint: Urinary tract infection Pt is resting comfortably in bed. He denies any chest pain, fever or SOB. She is getting iv merrem (day 2) for ESBL Ecoli. No other complaints. Review of Systems General: Unremarkable Eyes: Unremarkable ENT: Unremarkable Respiratory: Unremarkable Cardiovascular: Unremarkable Gastrointestinal: Unremarkable Genitourinary: Unremarkable Musculoskeletal: Unremarkable Integumentary: Unremarkable Neurological: Unremarkable Lymphatics: Unremarkable Physical Examination - Vital Signs Temperature: 97.2 F Blood Pressure: 130/60 Pulse: 64 Respirations: 19 Pulse Ox (%): 96 - Physical Exam General: Alert, In no apparent distress, Oriented x3 HEENT: Atraumatic, Normocephalic, PERRLA Neck: Supple, 2+ carotid pulse no bruit, JVD not distended Respiratory: Clear to auscultation bilaterally, Normal air movement Cardiovascular: No edema, Normal pulses, Regular rate/rhythm, Normal S1 S2 Capillary refill: <2 Seconds Gastrointestinal: Normal bowel sounds, Soft and benign, Non-distended Musculoskeletal: No clubbing, No swelling, No contractures Integumentary: No rashes, No breakdown, No significant lesion Neurological: Normal gait, Normal speech, Normal strength at 5/5 x4 extr Lymphatics: No axilla or inguinal lymphadenopathy Assessment And Plan - Plan ESBL E. coli UTI: Will continue merrem (day 2 of 7). F/u urine cx. Chronic atrial fibrillation: will continue telemetry, amiodarone and Eliquis. Chronic Gout: continue home dose allopurinol. COPD / Chronic respiratory failure with hypoxia: Stable. Not in exacerbation. Will continue prn duoneb and 2L oxygen. DVT ppx: Eliquis. Code: Full code Dispo: Pending hospital course.
--- NOTE | 2023-09-30 16:19 | EKG ---
Test Date: 2023-09-28 Test Time: 20:08:31 Medical Research Scientist: OXANA MEASUREMENT RESULTS: Intervals: Rate: 64 CT: 146 QRSD: 150 QT: 510 QTc: 526 [place]: P: 82 CT: 146 QRS: -4 T: 64 INTERPRETIVE STATEMENTS: Electronic atrial pacemaker Right bundle branch block Abnormal ECG Compared to ECG 04/25/2023 18:47:50 Ventricular-paced complex(es) or rhythm no longer present Electronically Signed On 09-30-23 16:17:00 CDT by Armando Holt
[2023-09-30 23:10] VITALS: O2SAT 96
[2023-10-01] MEDS: ACETAMINOPHEN 500 MG TAB PO PRN (06:03)
[2023-10-01 06:20] LABS: Absolute Eosinophils 0.1 K/uL (0-0.5); Absolute Lymphocytes (CBC) 1.6 K/uL (0.7-4.9); Absolute Monocytes 0.8 K/uL (0.1-1.3); Basophils % 0.9 % (0-1.3); Eosinophils % 2.6 % (0-4.4); Hematocrit 25.3 % (36.0-45.0); Hemoglobin 7.7 g/dL (12.0-15.0); Lymphocytes % 28.4 % (15.3-44.8); MCH 24.3 pg (27.0-35.0); MCHC 30.5 g/dL (32.0-36.0); MCV 79.8 fL (80-100); MPV 9.2 fL (7.6-11.3); Monocytes % 14.6 % (3.3-12.3); Neutrophils % 53.5 % (41.7-73.7); Nucleated Red Blood Cells % 0.3 % (0-0); Platelets 232 thou/uL (152-406); RBC Red Blood Cell Count 3.17 M/uL (3.86-4.86); Red Cell Distribution Width 17.3 % (12.1-15.2)
[2023-10-01 06:44] LABS: AST/SGOT 13 U/L (15-37); Albumin 2.5 g/dL (3.4-5.0); Albumin/Globulin Ratio 0.6 (1.1-1.8); Alkaline Phosphatase 106 U/L (45-117); Anion Gap 4.9 mEq/L (5.0-15.0); BUN Blood Urea Nitrogen 17 mg/dL (7-18); Bicarbonate 35 mEq/L (21-32); Bilirubin Total 0.7 mg/dL (0.2-1.0); Globulin 4.1 g/dL (2.3-3.5); Glomerular Filtration Rate 40 ml/min (=/>90); Glucose Level 85 mg/dL (74-106); Potassium 3.9 mEq/L (3.5-5.1); Protein, Total 6.6 g/dL (6.4-8.2); Sodium Level 139 mEq/L (136-145)
[2023-10-01 06:45] LABS: ALT/SGPT < 14 U/L (13-56)
--- NOTE | 2023-10-01 13:41 | P.DS ---
Admission Date: 09/28/23 Discharge Date: 10/02/23 Disposition: [place] [facility] CARE Discharge Condition: GOOD Reason for Admission: Urinary tract infection Brief History of Present Illness: 77-year-old male with a history of gout, COPD and hypertension was referred to the emergency department to be admitted for presence of ESBL E. coli in her urine. Patient reports urinary symptoms with suprapubic pain, dysuria and increased urinary frequency of about 3 days duration. She went to see her PCP Dr. Wilson, urine culture was done which grew ESBL E. coli. Patient denies any fever or nausea or inflammation or loss of appetite. She was assessed in the emergency department and patient noted to have anemia, UA is pending. Patient is hospitalized for further management. Hospital Course: Pt is a 77yo male with past medical history of gout, COPD, and hypertension who was sent to the ER by her PCP due to growth of ESBL E coli on her urine culture. On admission, we gave iv merrem. Pt remained A. febrile without leukocytosis. Renal function improved with IVF. Pt wlater discharged with iv Invanz 1gm iv daily for 4 more days. She was in NAD prior to discharge. Vital Signs/Physical Exam: Temp Pulse Resp BP Pulse Ox 97.1 F 64 18 141/65 H 95 10/01/23 12:00 10/01/23 12:00 10/01/23 12:00 10/01/23 12:00 10/01/23 12:00 Laboratory Data at Discharge: WBC 5.60 thou/uL (4.3-10.9) 10/01/23 05:57 Hgb 7.7 g/dL (12.0-15.0) L 10/01/23 05:57 Hct 25.3 % (36.0-45.0) L 10/01/23 05:57 Plt Count 232 thou/uL (152-406) 10/01/23 05:57 PT 15.7 SECONDS (9.5-12.5) H 09/28/23 20:26 INR 1.44 09/28/23 20:26 APTT 38.0 SECONDS (24.3-36.9) H 09/28/23 20:26 Sodium 139 mEq/L (136-145) 10/01/23 05:57 Potassium 3.9 mEq/L (3.5-5.1) 10/01/23 05:57 BUN 17 mg/dL (7-18) 10/01/23 05:57 Creatinine 1.37 mg/dL (0.55-1.02) H 10/01/23 05:57 Glucose 85 mg/dL (74-106) 10/01/23 05:57 Phosphorus 4.1 mg/dL (2.5-4.9) 09/29/23 02:06 Magnesium 2.1 mg/dL (1.6-2.4) 09/29/23 02:06 Total Bilirubin 0.7 mg/dL (0.2-1.0) 10/01/23 05:57 AST 13 U/L (15-37) L 10/01/23 05:57 ALT < 14 U/L (13-56) 10/01/23 05:57 Alkaline Phosphatase 106 U/L (45-117) 10/01/23 05:57 Home Medications: Allopurinol 300 mg PO DAILY 04/17/23 Apixaban [Eliquis] 5 mg PO BID 04/17/23 Bupropion *Xl* [Wellbutrin XL*] 150 mg PO DAILY 04/17/23 Famotidine 20 mg PO SEECOM 04/17/23 Fluticasone/Umeclidin/Vilanter [Trelegy Ellipta 100-62.5-25] 1 puff IH DAILY 04/17/23 Iron 27 Or 1 tab PO DAILY 04/17/23 Levothyroxine Sodium 75 mcg PO [id number] 04/17/23 Metoprolol Succinate 100 mg PO DAILY 04/17/23 Pregabalin 100 mg PO BID 04/17/23 Torsemide [Demadex*] 60 mg PO BID 04/17/23 Citalopram [Celexa*] 40 mg PO DAILY 04/18/23 Physician Discharge Instructions: Home Health Established: [address] [id number] ) [facility] [facility] [address], [place] [address] P/ Muriel: [phone] F Follow up appointment with Dr. Wilson: Wednesday10/05/23 at 3:30pm (arrive 3:15PM) - Dr. Wilson says it is very important that the patient keep this appointment [address], [place] [address] Diet: AHA Activity: Ad vanita Followup: Kush Wilson DO [Primary Care Provider] - (follow up with on as planned)
[2023-10-01 17:30] VITALS: BP 131/65; TEMP 97.2
[2023-10-01] MEDS ORDERED: Mupirocin NASAL 2 APPL/1 GM TUBE NAS SCH (21:00)
== END 2023-10-01 17:57 | disposition home health service (06) | DRG 690 ==
LOC: ER 18:35 → ERHOLD 21:38 → 4TH 09-29 10:34
PROVIDERS: ADMIT Internal Medicine; ATTEND Hospitalist
PROC: 02HV33Z Insertion of Infusion Device into Superior Vena Cava, Percutaneous Approach (ICD-10-PCS; principal; 2023-09-28)
DX: N39.0 Urinary tract infection, site not specified (principal); Z16.12 Extended spectrum beta lactamase (ESBL) resistance; I48.20 Chronic atrial fibrillation, unspecified; J96.11 Chronic respiratory failure with hypoxia; I10 Essential (primary) hypertension; D64.9 Anemia, unspecified; K21.9 Gastro-esophageal reflux disease without esophagitis; J44.9 Chronic obstructive pulmonary disease, unspecified; M1A.9XX0 Chronic gout, unspecified, without tophus (tophi); B96.20 Unspecified Escherichia coli [E. coli] as the cause of diseases classified elsewhere; Z88.1 Allergy status to other antibiotic agents; Z88.0 Allergy status to penicillin; Z88.2 Allergy status to sulfonamides; Z88.5 Allergy status to narcotic agent; Z88.8 Allergy status to other drugs, medicaments and biological substances; Z79.01 Long term (current) use of anticoagulants; Z91.013 Allergy to seafood; Z91.041 Radiographic dye allergy status; Z79.890 Hormone replacement therapy; Z79.899 Other long term (current) drug therapy
CPT/HCPCS: 36415; 80048; 80053; 81001; 83605; 83735; 84100; 85025; 85610; 85730; 87040; 87086; 87088; 93005; 96365; 97116; 97161; 97530; 99285; J1650; J2185

== ENCOUNTER 2023-11-21 17:50 | Observation (INO) | payer OTHER ==
[2023-11-21] MEDS ORDERED: METHYLPREDNISOLONE 125 MG INJ ONE (18:51)
[2023-11-21] MEDS ORDERED: IPRATROPIUM BROM 0.5MG/2.5ML ONE (18:51)
[2023-11-21] MEDS ORDERED: ALBUTEROL 2.5 MG/3 ML NEB SOL ONE (18:51)
[2023-11-21 19:02] LABS: Absolute Lymphocytes (CBC) 0.8 K/uL (0.7-4.9); Absolute Monocytes 1.4 K/uL (0.1-1.3); Absolute Neutrophil 9.1 K/uL (1.8-8.0); Basophils % 0.3 % (0-1.3); Eosinophils % 0.3 % (0-4.4); Hemoglobin 9.4 g/dL (12.0-15.0); Lymphocytes % 6.7 % (15.3-44.8); MCH 23.4 pg (27.0-35.0); MCHC 30.4 g/dL (32.0-36.0); MCV 76.9 fL (80-100); MPV 8.5 fL (7.6-11.3); Monocytes % 11.9 % (3.3-12.3); Neutrophils % 80.8 % (41.7-73.7); Nucleated Red Blood Cells % 0.3 % (0-0); Platelets 290 thou/uL (152-406); RBC Red Blood Cell Count 4.03 M/uL (3.86-4.86); Red Cell Distribution Width 16.8 % (12.1-15.2)
--- NOTE | 2023-11-21 19:04 | RAD REPORT ---
EXAM DESCRIPTION: RAD - Chest Single View - 11/21/2023 6:50 pm CLINICAL HISTORY: Congestion;Cough COMPARISON: Chest Single View dated 04/25/2023; Chest Pa And Lat (2 Views) dated 04/16/2023; Chest Sing le View dated 04/16/2023 FINDINGS: Lines: Left subclavian approach pacemaker. Lungs: No evidence of edema or pneumonia. Pleural: No significant pleural effusions or pneumothorax. Cardiac: Similar mild cardiomegaly. Mediastinum: Within normal limits. Bones: No acute fractures. ACDF in the cervical spine. Other: None IMPRESSION: No acute cardiopulmonary disease. No significant change compared with prior.
[2023-11-21 19:12] LABS: PT Prothrombin Time 13.2 SECONDS (9.4-12.5); Protime INR 1.18
[2023-11-21 19:13] LABS: PTT, Activated Partial Thromb 31.5 SECONDS (24.3-36.9)
[2023-11-21 19:19] LABS: SARS-CoV-2 Antigen CONTROL BLUE LINE VIS/BG OK; SARS-CoV-2 Antigen Rapid Res Negative (Negative)
[2023-11-21 19:22] LABS: AST/SGOT 18 U/L (15-37); Albumin/Globulin Ratio 0.6 (1.1-1.8); Alkaline Phosphatase 140 U/L (45-117); Anion Gap 7.8 mEq/L (5.0-15.0); BUN Blood Urea Nitrogen 17 mg/dL (7-18); Bicarbonate 28 mEq/L (21-32); Globulin 5.4 g/dL (2.3-3.5); Glomerular Filtration Rate 41 ml/min (=/>90); Glucose Level 107 mg/dL (74-106); NT PRO-BNP 897 pg/mL (<450); Potassium 3.8 mEq/L (3.5-5.1); Protein, Total 8.4 g/dL (6.4-8.2); Sodium Level 133 mEq/L (136-145); Troponin High Sensitivity 9.9 pg/mL (<58.9)
[2023-11-21 19:25] LABS: ALT/SGPT < 14 U/L (13-56)
--- NOTE | 2023-11-21 19:54 | ER ---
Nurse's Notes [facility] Name: eRkha Boyer Age: 77 yrs Sex: Female : 1945 Arrival Date: 11/21/2023 Time: 17:50 Bed 15 Private MD: Diagnosis: COPD/ Chronic obstructive pulmonary disease with (acute) exacerbation Presentation: 11/20 18:10 Chief complaint: Patient states: Cough, congestion, sore throat for a week, not better. nj1 Back on oxygen 24/7 at 2LPM DC, states pulse ox drop to 70's. Diarrhea today. Denies fever. 18:10 Coronavirus screen: Vaccine status: Patient reports receiving the 2nd dose of the covid nj1 vaccine. Ebola Screen: Patient denies travel to an Ebola-affected area in the 21 days before illness onset. Initial Sepsis Screen: Does the patient meet any 2 criteria? No. Patient's initial sepsis screen is negative. Does the patient have a suspected source of infection? No. Patient's initial sepsis screen is negative. Risk Assessment: Do you want to hurt yourself or someone else? Patient reports no desire to harm self or others. Onset of symptoms was November 2023. 18:10 Method Of Arrival: Wheelchair nj 18:10 Acuity: STEFANO 3 nj1 Triage Assessment: 18:45 General: Appears in no apparent distress. Behavior is calm, cooperative, appropriate bp for age. Pain: Denies pain. EENT: No deficits noted. Neuro: No deficits noted. Cardiovascular: Rhythm is regular. Respiratory: Breath sounds with wheezes bilaterally. GI: No signs and/or symptoms were reported involving the gastrointestinal system. Historical: - Allergies: 18:19 Clindamycin; nj1 18:19 Iodinated Contrast Media - IV Dye; nj1 18:19 Lisinopril; nj1 18:19 montelukast; nj1 18:19 PENICILLINS; nj1 18:19 shellfish derived; nj1 18:19 Sulfa (Sulfonamide Antibiotics); nj1 18:19 Tape; nj1 18:19 tramadol; nj1 - PMHx: 18:19 Asthma; Congestive heart failure; COPD; nj1 - Immunization history:: Client reports receiving the 2nd dose of the Covid vaccine. - Infectious Disease History:: Denies. - Social history:: Smoking status: Patient/guardian denies using tobacco, the patient reports quitting approximately 20 years ago. Vital Signs: 18:10 BP 159 / 63; Pulse 76; Resp 18; Temp 97.9(O); Pulse Ox 88% on R/A; Weight 115.21 kg; nj1 Height 5 ft. 8 in. ; 19:25 BP 126 / 104; Pulse 102; Resp 20; Pulse Ox 93% 2 lpm ; Pain 0/10; jm12 22:32 BP 155 / 71; Pulse 72; Resp 18; Pulse Ox 96% 2 lpm ; Pain 0/10; jm12 18:10 Body Mass Index 38.62 (115.21 kg, 172.72 cm) nj1 19:25 Pain Scale: Adult [facility] 22:32 Pain Scale: Adult [facility] ED Course: 17:54 Patient arrived in ED. mr 17:56 Candice Mathias FNP-C is [facility]. kb 17:56 Werner Peralta MD is Attending Physician. kb 18:11 Jorge Sabillon, [facility] is Primary Nurse. bp 18:19 Triage completed. nj1 18:20 Arm band placed on. nj1 18:43 Initial lab(s) drawn, by me, sent to lab. First set of blood cultures drawn by me, bp Second set of blood cultures drawn by me, COVID swab sent to lab. Flu and/or RSV swab sent to lab. 18:52 Chest Single View XRAY In Process Unspecified. EDMS 18:56 Inserted saline lock: 22 gauge in right forearm, using aseptic technique. Blood bp collected. Flushed with 10 mL NS. 19:53 Arcadio Sung MD is Hospitalizing Provider. kb 22:33 Patient admitted, IV remains in place. [facility] Administered Medications: 18:56 Drug: Albuterol Inhalation 2.5 mg Inhalation once Route: Inhalation; bp 18:56 Drug: Ipratropium Inhalation Aerosol 0.5 mg Inhalation once Route: Inhalation; bp 18:56 Drug: MethylPrednisoLONE IVP 125 mg IVP once Route: IVP; Site: right forearm; bp Outcome: 19:53 Decision to Hospitalize by Provider. kb 22:33 Admitted to Med/surg accompanied by tech, room 215, [facility] 22:33 Condition: stable 22:34 Patient left the ED. [facility] Signatures: Dispatcher [employer] EDMS Candice Mathias FNP-C FNP-Ckchapito Tiki Alcocer, Reg Reg mr Jorge Sabillon, RN RN bp Sharri Hicks, RN RN nj1 Karol Rivas, RN RN jm12
--- NOTE | 2023-11-21 19:54 | EDPHYS ---
Physician Documentation [facility] Name: Rekha Boyer Age: 77 yrs Sex: Female : 1945 Arrival Date: 11/21/2023 Time: 17:50 Bed 15 Private MD: ED Physician Werner Peralta HPI: 11/20 21:47 This 77 yrs old Female presents to ER via Wheelchair with complaints of Cough, kb Congestion, Sore Throat. 21:47 Pt is a 77 year old female who presents for cough, congestion, shortness of breath, kb chills, bodyaches and sore throat that started one week ago. States her grandson came home from daycare with similar symptoms, then spread it to the rest of the family. Reports diarrhea started today. Denies nausea, vomiting, fever. States she used to be on home oxygen but has been off of it for some time. States her oxygen saturation was 79% when OT checked it a few days ago so she has been using oxygen since then. States symptoms have just been progressing. Historical: - Allergies: 18:19 Clindamycin; nj1 18:19 Iodinated Contrast Media - IV Dye; nj1 18:19 Lisinopril; nj1 18:19 montelukast; nj1 18:19 PENICILLINS; nj1 18:19 shellfish derived; nj1 18:19 Sulfa (Sulfonamide Antibiotics); nj1 18:19 Tape; nj1 18:19 tramadol; nj1 - PMHx: 18:19 Asthma; Congestive heart failure; COPD; nj1 - Immunization history:: Client reports receiving the 2nd dose of the Covid vaccine. - Infectious Disease History:: Denies. - Social history:: Smoking status: Patient/guardian denies using tobacco, the patient reports quitting approximately 20 years ago. ROS: 21:46 Constitutional: As per HPI kb Exam: 20:42 Constitutional: This is a well developed, well nourished patient who is awake, alert, kb and in no acute distress. Head/Face: Normocephalic, atraumatic. ENT: Moist Mucous membranes Cardiovascular: Regular rate Abdomen/GI: Soft, non-tender. No distention Skin: Warm, dry with normal turgor. Normal color. MS/ Extremity: Pulses equal, no cyanosis. Neurovascular intact. Full, normal range of motion. Neuro: Awake and alert, GCS 15, oriented to person, place, time, and situation. Moves all extremities. Normal gait. 20:42 ECG was reviewed by the Attending Physician. 20:42 Respiratory: mild respiratory distress is noted, Respirations: labored breathing, that is mild, Breath sounds: wheezing: expiratory that is moderate, is scattered, Vital Signs: 18:10 BP 159 / 63; Pulse 76; Resp 18; Temp 97.9(O); Pulse Ox 88% on R/A; Weight 115.21 kg; nj1 Height 5 ft. 8 in. ; 19:25 BP 126 / 104; Pulse 102; Resp 20; Pulse Ox 93% 2 lpm ; Pain 0/10; 12 22:32 BP 155 / 71; Pulse 72; Resp 18; Pulse Ox 96% 2 lpm ; Pain 0/10; 12 18:10 Body Mass Index 38.62 (115.21 kg, 172.72 cm) [facility] 19:25 Pain Scale: Adult [facility] 22:32 Pain Scale: Adult [facility] MDM: 17:56 Patient medically screened. kb 21:46 Differential Diagnosis: Bronchitis Influenza Upper Respiratory Infection Viral Syndrome kb Other copd exacerbation, pulmonary edema. Data reviewed: vital signs, nurses notes. Consideration of Admission/Observation Patient was admitted/placed on observation. Escalation of care including admission/observation considered. Management of patient was discussed with the following: Hospitalist: Dr Sung accepts pt for admission. Historians other than the Patient: Daughter/Son: son and daughter. Care significantly affected by the following chronic conditions: Congestive Heart Failure, Chronic Obstructive Pulmonary Disease. Counseling: I had a detailed discussion with the patient and/or guardian regarding the historical points, exam findings, and any diagnostic results supporting the discharge/admit diagnosis, lab results, radiology results, the need for further work-up and treatment in the hospital. 11/20 18:20 Order name: SARS-COV-2 Antigen Rapid; Complete Time: 19:21 kb 11/20 18:20 Order name: RSV; Complete Time: 19:28 kb 11/20 18:20 Order name: Blood Culture Adult (2) kb 11/20 18:20 Order name: CBC with Diff; Complete Time: 19:11 kb 11/20 18:20 Order name: CMP; Complete Time: 19:28 kb 11/20 18:20 Order name: Lactate w/ 2H reflex if indic.; Complete Time: 19:21 kb 11/20 18:20 Order name: Protime (+inr); Complete Time: 19:17 kb 11/20 18:20 Order name: Ptt, Activated; Complete Time: 19:17 kb 11/20 18:20 Order name: BNP; Complete Time: 19:28 kb 11/20 18:20 Order name: Troponin High Sensitivity; Complete Time: 19:28 kb 11/20 20:24 Order name: Urinalysis w/ reflexes EDMS 11/20 20:24 Order name: CBC with Automated Diff EDMS 11/20 20:24 Order name: CBC with Automated Diff EDMS 11/20 20:24 Order name: Comprehensive Metabolic Panel EDMS 11/20 20:24 Order name: Comprehensive Metabolic Panel EDMS 11/20 18:20 Order name: Chest Single View XRAY; Complete Time: 19:05 kb 11/20 18:20 Order name: Accucheck; Complete Time: 18:56 kb 11/20 18:20 Order name: Cardiac monitoring; Complete Time: 18:27 kb 11/20 18:20 Order name: EKG - Nurse/Tech; Complete Time: 19:24 kb 11/20 18:20 Order name: IV Saline Lock - Large Bore; Complete Time: 18:56 kb 11/20 18:20 Order name: Labs collected and sent; Complete Time: 18:56 kb 11/20 18:20 Order name: O2 Per Protocol; Complete Time: 18:27 kb 11/20 18:20 Order name: O2 Sat Monitoring; Complete Time: 18:27 kb 11/20 18:20 Order name: Vital Signs; Complete Time: 18:27 kb EC:42 Rate is 77 beats/min. Rhythm is regular. QRS [place] is Normal. [place] interval is normal at kb 152 msec. QRS interval is normal at 140 msec. QT interval is prolonged at 522 msec. Administered Medications: 18:56 Drug: Albuterol Inhalation 2.5 mg Inhalation once Route: Inhalation; bp 18:56 Drug: Ipratropium Inhalation Aerosol 0.5 mg Inhalation once Route: Inhalation; bp 18:56 Drug: MethylPrednisoLONE IVP 125 mg IVP once Route: IVP; Site: right forearm; bp Disposition: 11/21 08:43 Co-signature as Attending Physician, Werner Peralta MD I reviewed the patient's care rn provided by the Advanced Practice Provider and agree with the diagnosis and treatment plan. Disposition Summary: 11/21/23 19:53 Hospitalization Ordered Notes: Hospitalization Status: Observation kb Provider: Arcadio Sung Location: Telemetry/MedSurg (observation) kb Condition: Stable kb Problem: new kb Symptoms: are unchanged kb Bed/Room Type: Standard Room Assignment: 215(11/21/23 20:38) sp Diagnosis - COPD/ Chronic obstructive pulmonary disease with (acute) exacerbation kb Forms: - Medication Reconciliation Form kb - SBAR form kb - Leadership Thank You Letter kb Signatures: Dispatcher [employer] EDMS Candice Mathias, NUMERICAL ANALYSIS GROUP MANAGER-C NUMERICAL ANALYSIS GROUP MANAGER-Ckb Lynn Baires Roman, MD MD rn Peltier, Brian, RN RN bp Jaco, Norma, RN RN nj1 Corrections: (The following items were deleted from the chart) 11/20 18:21 18:21 SARS-COV-2 Antigen Rapid+I.LAB.BRZ ordered. EDMS EDMS 18:21 18:21 Respiratory Syncytial Virus Ag+BA.LAB.BRZ ordered. EDMS EDMS 18:21 18:21 BLOOD CULTURE*+BA.LAB.BRZ ordered. EDMS EDMS 18:21 18:21 CBC+H.LAB.BRZ ordered. EDMS EDMS 18:21 18:21 COMPREHENSIVE METABOLIC PANEL+C.LAB.BRZ ordered. EDMS EDMS 18:21 18:21 LACTATE+C.LAB.BRZ ordered. EDMS EDMS 18:21 18:21 PROTIME (+INR)+COAG.LAB.BRZ ordered. EDMS EDMS 18:21 18:21 PTT, ACTIVATED+COAG.LAB.BRZ ordered. EDMS EDMS 18:21 18:21 PROBNP+C.LAB.BRZ ordered. EDMS EDMS 18:21 18:21 Troponin High Sensitivity+C.LAB.BRZ ordered. EDMS EDMS 18:21 18:21 Chest Single View+RAD.RAD.BRZ ordered. EDMS EDMS 20:38 19:53 kb sp
--- NOTE | 2023-11-21 20:16 | P.HP ---
Certification for Inpatient With expected LOS: >2 Midnights Practitioner: I am a practitioner with admitting privileges, knowledge of patient current condition, hospital course, and medical plan of care. Services: Services provided to patient in accordance with Admission requirements found in Title 42 Section 412.3 of the Code of Federal Regulations Patient History Date of Service: 11/22/23 Reason for admission: SOB History of Present Illness: 77-year-old woman with a past medical history of COPD, chronic respiratory failure on 2 L of oxygen by nasal cannula at baseline, history of congestive heart failure, atrial fibrillation on anticoagulation presented to the emergency department for progressive shortness of breath and cough of 1 week duration. She started having cough, congestion, shortness of breath, associated with chills, bodyaches and sore throat that started one week ago. States her grandson came home from daycare with similar symptoms, then spread it to the rest of the family. Reports diarrhea started today. Denies nausea, vomiting, fever. States she used to be on home oxygen but has been off of it for some time. States her oxygen saturation was 79% when OT checked it a few days ago so she has been using oxygen since then., Patient denies any chest pain. Cough is productive with mucoid expectoration. Associated with congestion as well. Patient was assessed in the ER and is admitted for further management of COPD exacerbation possible bronchitis Allergies clindamycin Allergy (Verified 04/16/23 23:57) Nausea/Vomiting Iodinated Contrast Media Allergy (Verified 04/16/23 23:57) Hives lisinopril Allergy (Verified 04/16/23 23:59) muscle aches montelukast [From Singulair] Allergy (Verified 04/16/23 23:57) Hives Penicillins Allergy (Verified 04/16/23 23:57) Hives shellfish derived Allergy (Verified 04/16/23 23:57) Hives Sulfa (Sulfonamide Antibiotics) Allergy (Verified 04/16/23 23:57) Nausea/Vomiting tramadol Allergy (Verified 04/16/23 23:59) dizziness,GI upset Home medications list reviewed: Yes Home Medications: Allopurinol 300 mg PO DAILY 04/17/23 Apixaban [Eliquis] 5 mg PO BID 04/17/23 Bupropion *Xl* [Wellbutrin XL*] 150 mg PO DAILY 04/17/23 Famotidine 20 mg PO SEECOM 04/17/23 Fluticasone/Umeclidin/Vilanter [Trelegy Ellipta 100-62.5-25] 1 puff IH BID 04/17/23 Levothyroxine Sodium 75 mcg PO [id number] 04/17/23 Metoprolol Succinate 100 mg PO DAILY 04/17/23 Pregabalin 100 mg PO BID 04/17/23 Torsemide [Demadex*] 60 mg PO BID 04/17/23 Citalopram [Celexa*] 40 mg PO DAILY 04/18/23 Fluticasone/Umeclidin/Vilanter [Trelegy Ellipta 100-62.5-25] 1 puff PF DAILY 11/21/23 - Past Medical/Surgical History Diabetic: No Past Medical History: Reviewed- Non-Contributory -: Chronic atrial fibrillation -: Congestive heart failure -: COPD -: Chronic respiratory failure -: GERD Past Surgical History: Reviewed- Non-Contributory -: Gallbladder surgery - Family History Father -: Cancer - Social History Smoking Status: Former smoker Alcohol use: No CD- Drugs: No Caffeine use: Yes Review of Systems 10-point ROS is otherwise unremarkable Physical Examination - Vital Signs Temperature: 97.5 F Blood Pressure: 162/80 Pulse: 82 Respirations: 18 Pulse Ox (%): 94 - Physical Exam General: Alert, Oriented x3, Mild distress HEENT: Atraumatic, Normocephalic Neck: Supple, No Thyromegaly Respiratory: Diminished, Crackles/rales, Expiratory wheezes Cardiovascular: Normal pulses, Regular rate/rhythm, Normal S1 S2 Capillary refill: <2 Seconds Gastrointestinal: Soft and benign, W/out hepatosplenomegaly, No ascites, No tenderness Musculoskeletal: No clubbing, No swelling Integumentary: No rashes, No breakdown Neurological: Normal gait, Normal speech, Normal strength at 5/5 x4 extr, Cranial nerves 3-12 intact Lymphatics: No axilla or inguinal lymphadenopathy - Studies Laboratory Data (last 24 hrs) 11/21/23 11/21/23 11/21/23 18:43 18:43 18:43 WBC 11.30 H Hgb 9.4 L Hct 31.0 L Plt Count 290 PT 13.2 H INR 1.18 APTT 31.5 Sodium 133 L Potassium 3.8 BUN 17 Creatinine 1.35 H Glucose 107 H Total Bilirubin 1.0 AST 18 ALT < 14 Alkaline Phosphatase 140 H Microbiology Data (last 24 hrs): 11/21/23 18:43 Nasopharnyx Respiratory Syncytial Virus Ag Scrn - Final Assessment and Plan - Plan COPD exacerbation Bronchitis Acute on chronic respiratory failure Place patient on observation Start IV Rocephin and Zithromax Scheduled nebulizer treatments IV steroid Wean oxygen as tolerated. Chronic atrial fibrillation Continue home medications-Toprol and amiodarone Continue Eliquis. Hypothyroidism Check TSH Continue home dose Synthroid. Chronic diastolic heart failure Stable without acute exacerbation. Continue home dose torsemide. Chronic kidney disease stage III Monitor renal function. DVT prophylaxis:Lovenox Advanced directive full code Discharge Plan: Home Plan to discharge in: 48 Hours - Advance Directives Does patient have a Living Will: Yes Does patient have a Durable POA for Healthcare: Yes - Code Status/Comfort Care Code Status: Full Code Time Spent Managing Pts Care (In Minutes): 48
[2023-11-21] MEDS ORDERED: ACETAMINOPHEN 325 MG TABLET PO PRN (20:19)
[2023-11-21] MEDS ORDERED: ALBUTEROL 2.5 MG/3 ML NEB SOL NEB PRN (20:19)
[2023-11-21] MEDS ORDERED: ONDANSETRON 4 MG/2 ML VIAL IV PRN (20:19)
[2023-11-21 23:17] VITALS: BMI 38.6
[2023-11-22] MEDS: ALBUTEROL 2.5 MG/3 ML NEB SOL NEB SCH (00:45)
[2023-11-22] MEDS: IPRATROPIUM BROM 0.5MG/2.5ML NEB SCH (00:45)
[2023-11-22 05:45] LABS: Absolute Lymphocytes (CBC) 0.5 K/uL (0.7-4.9); Absolute Monocytes 0.2 K/uL (0.1-1.3); Absolute Neutrophil 9.7 K/uL (1.8-8.0); Basophils % 0.1 % (0-1.3); Hematocrit 30.1 % (36.0-45.0); Hemoglobin 9.3 g/dL (12.0-15.0); Lymphocytes % 4.5 % (15.3-44.8); MCH 24.1 pg (27.0-35.0); MCV 77.9 fL (80-100); MPV 8.6 fL (7.6-11.3); Monocytes % 1.6 % (3.3-12.3); Neutrophils % 93.8 % (41.7-73.7); Platelets 325 thou/uL (152-406); RBC Red Blood Cell Count 3.86 M/uL (3.86-4.86); Red Cell Distribution Width 17.2 % (12.1-15.2)
[2023-11-22 06:01] LABS: AST/SGOT 15 U/L (15-37); Albumin 2.7 g/dL (3.4-5.0); Albumin/Globulin Ratio 0.5 (1.1-1.8); Alkaline Phosphatase 131 U/L (45-117); Anion Gap 11.5 mEq/L (5.0-15.0); BUN Blood Urea Nitrogen 19 mg/dL (7-18); Bicarbonate 28 mEq/L (21-32); Bilirubin Total 0.7 mg/dL (0.2-1.0); Globulin 5.3 g/dL (2.3-3.5); Glomerular Filtration Rate 40 ml/min (=/>90); Glucose Level 148 mg/dL (74-106); Potassium 4.5 mEq/L (3.5-5.1); Sodium Level 136 mEq/L (136-145)
[2023-11-22 06:02] LABS: ALT/SGPT < 14 U/L (13-56)
[2023-11-22] MEDS: METHYLPREDNISOLONE 125 MG INJ IV SCH (06:30)
[2023-11-22] MEDS: FAMOTIDINE 20 MG TAB PO SCH (06:31)
[2023-11-22] MEDS: LEVOTHYROXINE SOD 0.075 MG TAB PO SCH (06:31)
[2023-11-22 07:30] LABS: Blood Morphology Comment NOT SEEN (NOT SEEN); Platelet Estimate ADEQ; White Blood Cell Scan OK (OK)
[2023-11-22] MEDS: DULERA 100/5 (MOMETASONE/FORMOTEROL) INHALER IH SCH (08:56)
[2023-11-22] MEDS: ENOXAPARIN 40 MG/0.4 ML SQ SCH (08:57)
[2023-11-22] MEDS: CEFTRIAXONE 1,000 MG in NA CHLORIDE 0.9% 50 ML IVPB SCH (08:57)
[2023-11-22] MEDS: TORSEMIDE 20 MG TAB PO SCH (08:57)
[2023-11-22] MEDS: AZITHROMYCIN 250 MG TAB PO SCH (08:58)
[2023-11-22] MEDS: CITALOPRAM 10 MG TABLET PO SCH (08:58)
[2023-11-22] MEDS: PREGABALIN 50 MG CAP PO SCH (08:59)
[2023-11-22] MEDS: METOPROLOL XL 100 MG TAB PO SCH (08:59)
[2023-11-22] MEDS: allopurinoL 300 MG TAB PO SCH (09:00)
[2023-11-22] MEDS: APIXABAN 5 MG TABLET PO SCH (09:00)
[2023-11-22] MEDS: BUPROPION HCL XL 150 MG TAB PO SCH (09:00)
--- NOTE | 2023-11-22 13:45 | EKG ---
Test Date: 2023-11-21 Test Time: 19:17:19 [employer]: VIDAL MEASUREMENT RESULTS: Intervals: Rate: 77 KS: 152 QRSD: 140 QT: 462 QTc: 522 [place]: P: 102 KS: 152 QRS: 61 T: 3 INTERPRETIVE STATEMENTS: Sinus rhythm with premature supraventricular complexes Right bundle branch block Abnormal ECG Compared to ECG 09/28/2023 20:08:31 Atrial premature complex(es) now present Atrial-paced complex(es) or rhythm no longer present Electronically Signed On 11-22-23 13:43:35 CDT by Armando Holt
--- NOTE | 2023-11-22 16:37 | P.DS ---
Admission Date: 11/21/23 Discharge Date: 11/22/23 Disposition: ROUTINE DISCHARGE Discharge Condition: FAIR Reason for Admission: SOB Brief History of Present Illness: 77-year-old woman with a past medical history of COPD, chronic respiratory failure on 2 L of oxygen by nasal cannula at baseline, history of congestive heart failure, atrial fibrillation on anticoagulation presented to the emergency department for progressive shortness of breath and cough of 1 week duration. She started having cough, congestion, shortness of breath, associated with chills, bodyaches and sore throat that started one week prior. She stated her lencho otto came home from daycare with similar symptoms, then spread it to the rest of the family. He reported experiencing diarrhea. She denied any fever. She stated she used to be on home oxygen but has been off of it for some time. States her oxygen saturation was 79% when OT checked it a few days ago so she has been using oxygen since then. Cough productive with mucoid expectoration. Patient was assessed in the ER and was admitted for further management of COPD exacerbation and possible bronchitis. Hospital Course: Patient was treated with IV steroid, scheduled bronchodilators, IV Rocephin and azithromycin. She was maintained on 2 L of oxygen by nasal cannula with good oxygen saturation. Patient was evaluated by pulmonary Dr. Roman who transitioned IV antibiotics to oral Levaquin, IV steroid to oral prednisone given her rapid respiratory improvement. Nasal swab was negative for RSV. Overall patient is stable with stable vitals. She is deemed stable for discharge per pulmonary. Vital Signs/Physical Exam: Temp Pulse Resp BP Pulse Ox 97.8 F 69 15 141/65 H 93 11/22/23 12:00 11/22/23 12:11/22/23 12:11/22/23 12:11/22/23 12:00 General: Alert, In no apparent distress, Oriented x3 HEENT: Mucous membr. moist/pink Neck: JVD not distended Respiratory: Clear to auscultation bilaterally, Normal air movement, Other Cardiovascular: No edema, Regular rate/rhythm, Normal S1 S2 Gastrointestinal: Normal bowel sounds, Soft and benign, Non-distended, No tenderness Musculoskeletal: No swelling Integumentary: No rashes, No cyanosis Neurological: Normal strength at 5/5 x4 extr Laboratory Data at Discharge: WBC 10.40 thou/uL (4.3-10.9) 11/22/23 04:25 Hgb 9.3 g/dL (12.0-15.0) L 11/22/23 04:25 Hct 30.1 % (36.0-45.0) L 11/22/23 04:25 Plt Count 325 thou/uL (152-406) 11/22/23 04:25 PT 13.2 SECONDS (9.4-12.5) H 11/21/23 18:43 INR 1.18 11/21/23 18:43 APTT 31.5 SECONDS (24.3-36.9) 11/21/23 18:43 Sodium 136 mEq/L (136-145) 11/22/23 04:25 Potassium 4.5 mEq/L (3.5-5.1) D 11/22/23 04:25 BUN 19 mg/dL (7-18) H 11/22/23 04:25 Creatinine 1.39 mg/dL (0.55-1.02) H 11/22/23 04:25 Glucose 148 mg/dL (74-106) H 11/22/23 04:25 Total Bilirubin 0.7 mg/dL (0.2-1.0) 11/22/23 04:25 AST 15 U/L (15-37) 11/22/23 04:25 ALT < 14 U/L (13-56) 11/22/23 04:25 Alkaline Phosphatase 131 U/L (45-117) H 11/22/23 04:25 Home Medications: Allopurinol 300 mg PO DAILY 04/17/23 Apixaban [Eliquis] 5 mg PO BID 04/17/23 Bupropion *Xl* [Wellbutrin XL*] 150 mg PO DAILY 04/17/23 Famotidine 20 mg PO SEECOM 04/17/23 Fluticasone/Umeclidin/Vilanter [Trelegy Ellipta 100-62.5-25] 1 puff IH BID 04/17/23 Levothyroxine Sodium 75 mcg PO [id number] 04/17/23 Metoprolol Succinate 100 mg PO DAILY 04/17/23 Pregabalin 100 mg PO BID 04/17/23 Torsemide [Demadex*] 60 mg PO BID 04/17/23 Citalopram [Celexa*] 40 mg PO DAILY 04/18/23 levoFLOXacin [Levaquin*] 500 mg PO DAILY #7 tab 11/22/23 predniSONE [Deltasone*] 10 mg PO BID #37 tab 11/22/23 New Medications: predniSONE [Deltasone*] 10 mg PO BID #37 tab levoFLOXacin [Levaquin*] 500 mg PO DAILY #7 tab Diet: AHA Activity: Ad vanita Followup: Vincenzo Roman MD [ACTIVE - CAN ADMIT] - 1-2 Weeks Kush Wilson DO [Primary Care Provider] - 1-2 Weeks Time spent managing pt's care (in minutes): 29
--- NOTE | 2023-11-22 16:41 | P.CNS ---
Date of Consult: 11/22/23 Reason for Consult: COPD exacerbation Chief Complaint: SOB History of Present Illness: Patient is 77 years of age with a history of COPD became sick since last child was sick she started out with diarrhea sore throat and then on Wednesday started having some cough congestion productive sputum patient does use trilogy at home no recent exacerbation no recent use of prednisone or antibiotic Allergies clindamycin Allergy (Verified 04/16/23 23:57) Nausea/Vomiting Iodinated Contrast Media Allergy (Verified 04/16/23 23:57) Hives lisinopril Allergy (Verified 04/16/23 23:59) muscle aches montelukast [From Singulair] Allergy (Verified 04/16/23 23:57) Hives Penicillins Allergy (Verified 04/16/23 23:57) Hives shellfish derived Allergy (Verified 04/16/23 23:57) Hives Sulfa (Sulfonamide Antibiotics) Allergy (Verified 04/16/23 23:57) Nausea/Vomiting tramadol Allergy (Verified 04/16/23 23:59) dizziness,GI upset Home Medications: Allopurinol 300 mg PO DAILY 04/17/23 Apixaban [Eliquis] 5 mg PO BID 04/17/23 Bupropion *Xl* [Wellbutrin XL*] 150 mg PO DAILY 04/17/23 Famotidine 20 mg PO SEECOM 04/17/23 Fluticasone/Umeclidin/Vilanter [Trelegy Ellipta 100-62.5-25] 1 puff IH BID 04/17/23 Levothyroxine Sodium 75 mcg PO [id number] 04/17/23 Metoprolol Succinate 100 mg PO DAILY 04/17/23 Pregabalin 100 mg PO BID 04/17/23 Torsemide [Demadex*] 60 mg PO BID 04/17/23 Citalopram [Celexa*] 40 mg PO DAILY 04/18/23 levoFLOXacin [Levaquin*] 500 mg PO DAILY #7 tab 11/22/23 predniSONE [Deltasone*] 10 mg PO BID #37 tab 11/22/23 - Past Medical/Surgical History Diabetic: No -: Chronic atrial fibrillation -: Congestive heart failure -: COPD -: Chronic respiratory failure -: GERD -: Gallbladder surgery - Family History Father History Unknown: Yes Medical History: Cancer Notes: liver cancer - Social History Smoking Status: Former smoker Alcohol use: No CD- Drugs: No Caffeine use: Yes Place of Residence: Home Review of Systems 10-point ROS is otherwise unremarkable General: Weakness Respiratory: Cough, Shortness of Breath Physical Examination Temp Pulse Resp BP Pulse Ox 97.8 F 69 15 141/65 H 93 11/22/23 12:00 11/22/23 12:00 11/22/23 12:00 11/22/23 12:00 11/22/23 12:00 General: Alert, Oriented x3 Respiratory: Friction rub, Expiratory wheezes Cardiovascular: Normal pulses, Regular rate/rhythm Gastrointestinal: Normal bowel sounds, Soft and benign Musculoskeletal: No clubbing, No swelling Laboratory Data (last 24 hrs) 11/21/23 11/21/23 11/21/23 18:43 18:43 18:43 WBC 11.30 H Hgb 9.4 L Hct 31.0 L Plt Count 290 PT 13.2 H INR 1.18 APTT 31.5 Sodium 133 L Potassium 3.8 BUN 17 Creatinine 1.35 H Glucose 107 H Total Bilirubin 1.0 AST 18 ALT < 14 Alkaline Phosphatase 140 H - Problems (1) COPD exacerbation Current Visit: No Status: Acute Plan: Patient is 77 years of age with a history of COPD admitted with COPD exacerbation still is has cough congestion presumed viral patient is on trilogy at home changed over to p.o. levofloxacin vital signs oxygenation stable on 2 L of nasal cannula oxygen continue with the bronchodilators plan for discharge tomorrow chest x-ray is clear patient has chronic renal failure mild anemia which is microcytic 1 dose of Lasix possible discharge tomorrow on prednisone 20 twice daily for a week and levofloxacin 500 mg daily for for 5 days continue with Trelegy patient has O2 at home follow-up with me as outpatient
[2023-11-22 17:08] VITALS: BP 121/61; TEMP 97.9
[2023-11-22] MEDS: FUROSEMIDE 20 MG/ 2ML VIAL IV ONE (17:21)
[2023-11-22 17:24] LABS: Arterial Blood Carboxyhemoglob 0.9 % (0-1.5); Blood Gas Oxyhemoglobin 85.7 % (94-97); Blood Gas THB 10.3 g/dl (12-18); Blood O2 Saturation 87.9 % (92-98.5)
[2023-11-22 17:34] VITALS: O2SAT 95
[2023-11-22] MEDS ORDERED: predniSONE 10 MG TAB PO SCH (21:00)
[2023-11-23] MEDS ORDERED: levoFLOXacin 500 MG TAB PO SCH (09:00)
== END 2023-11-22 18:49 | disposition home health service (06) ==
LOC: ER 17:50 → INTOOBSV 20:19 → ERHOLD 20:19 → 2ND 21:54
PROVIDERS: ADMIT Family Medicine; ATTEND Internal Medicine
DX: J44.1 Chronic obstructive pulmonary disease with (acute) exacerbation (principal); J40 Bronchitis, not specified as acute or chronic; I48.11 Longstanding persistent atrial fibrillation; E03.9 Hypothyroidism, unspecified; I50.32 Chronic diastolic (congestive) heart failure; N18.30 Chronic kidney disease, stage 3 unspecified; Z79.01 Long term (current) use of anticoagulants; Z88.2 Allergy status to sulfonamides; Z88.0 Allergy status to penicillin; Z88.3 Allergy status to other anti-infective agents; Z88.5 Allergy status to narcotic agent; Z91.013 Allergy to seafood; Z88.8 Allergy status to other drugs, medicaments and biological substances; Z11.52 Encounter for screening for COVID-19
CPT/HCPCS: 93005; 87040 ×2; 85025 ×2; 36415; 85610; 82947 ×3; 83605; 85730; 84484; 80053 ×2; 83880; 87807; 71045; 94640; 82805; 94760 ×3; 96374; 99285; 87811; J3535; J1940; J7613 ×4; J7644 ×4; J1650; J2919 ×3; J0696; G0378